=== PATIENT | female | born 1995 ===

== ENCOUNTER 2016-09-12 20:44 | Emergency (ER) | payer OTHER ==
[2016-09-12] MEDS ORDERED: Sulfamethox/Trimethoprim DS 800/160* TAB PO ONE (21:21)
--- NOTE | 2016-09-12 22:04 | UC ---
Joel Rivera Aidan, scribed for Loni Guerrero MD on 09/12/16 at 2125 . Complaint Female HPI - HPI Summary HPI Summary: 21 y/o female presents to the Urgent Care with a complaint of acute, moderate (7 /10) episodes of dysuria described as a burning sensation that began today. She took 1 pill of Azo, which slightly alleviated her pain. Pt denies any abdominal or lower back pain. She just finished her menstrual cycle 3 days ago. No allergies to medications. Hx of 2 UTIs previously. - History Of Current Complaint Chief Complaint: UCGU Stated Complaint: UTI-TYPE SYMPTOMS Time Seen by Provider: 09/12/16 21:08 Hx Obtained From: Patient Hx Last Menstrual Period: 09/02 ?: No Onset/Duration: Sudden Onset, Lasting Hours, Still Present Timing: Intermittent - during urination Severity Initially: Moderate Severity Currently: Moderate Pain Intensity: 7 Pain Scale Used: 0-10 Numeric Radiates to: does not radiate Character: Burning Aggravating Factor(s): Nothing Alleviating Factor(s): Nothing Associated Signs And Symptoms: Positive: Negative Related Hx: Similar Episode/Dx as: - UTI - Risk Factors Ectopic Risk Factor: Negative Ovarian Torsion Risk Factor: Reproductive Age - Allergies/Home Medications Allergies/Adverse Reactions: Allergies Allergy/AdvReac Type Severity Reaction Status Date / Time No Known Allergies Allergy Verified 09/12/16 21:01 Home Medications: Home Medications Phenazopyridine HCl [Azo Urinary Pain Relief] 09/12/16 [History] PMH/Surg Hx/FS Hx/Imm Hx Previously Healthy: Yes - Surgical History Surgical History: None - Family History Known Family History: Positive: Diabetes - Social History Occupation: Student Lives: Alone Alcohol Use: None Substance Use Type: None Smoking Status (MU): Never Smoked Tobacco Review of Systems Constitutional: Negative Skin: Negative Eyes: Negative ENT: Negative Respiratory: Negative Cardiovascular: Negative Gastrointestinal: Negative Genitourinary: Dysuria Motor: Negative Neurovascular: Negative Musculoskeletal: Negative Neurological: Negative Psychological: Negative All Other Systems Reviewed And Are Negative: Yes Physical Exam Triage Information Reviewed: Yes Appearance: Well-Appearing, Well-Nourished, Pain Distress Vital Signs: Initial Vital Signs Temp 97.8 F 09/12/16 20:56 Pulse 86 09/12/16 20:56 Resp 20 02/20/17 20:56 Vital Signs Reviewed: Yes Eyes: Positive: Conjunctiva Clear ENT: Positive: Normal ENT inspection Neck: Positive: Supple Respiratory: Positive: No respiratory distress Cardiovascular: Positive: RRR, Pulses Normal, Brisk Capillary Refill Abdomen Description: Positive: Nontender, No Organomegaly, Soft. Negative: CVA Tenderness (R), CVA Tenderness (L), Distended, Guarding, McBurney's Point Tenderness, Peritoneal Signs, Pulsatile Mass Bowel Sounds: Positive: Present Musculoskeletal: Positive: Strength Intact, ROM Intact Neurological: Positive: Alert, Muscle Tone Normal Psychological Exam: Normal Skin Exam: Normal Complaint Female Dx - Course Course Of Treatment: UA pos nitrites, neg leukocytes. UA may have been altered by the AZO, will treat as UTI, and alter if necessary depending on culture. - Differential Dx/Diagnosis Differential Diagnosis/HQI/PQRI: Pelvic Inflammatory Disease, Ureteral Stone, Urinary Tract Infection Provider Diagnoses: UTI Discharge - Discharge Plan Condition: Stable Disposition: HOME Prescriptions: Sulfamethox/Trimethoprim DS* [Bactrim DS 800/160 TAB*] 1 tab PO BID #10 tab Patient Education Materials: Urinary Tract Infection in Women (ED) Referrals: [facility] [Provider Group] The documentation as recorded by the Joel goddard Aidan accurately reflects the service I personally performed and the decisions made by , Loni Guerrero MD.
== END 2016-09-12 21:30 | disposition home or self-care (01) ==
LOC: UCEAST 20:44
DX: N39.0 Urinary tract infection, site not specified (principal); Z87.440 Personal history of urinary (tract) infections; Z32.02 Encounter for pregnancy test, result negative
CPT/HCPCS: 81002; 81025; 87086; 99202; A9270-GY; G0463